=== PATIENT | male | born 1945 | race Caucasian/White ===

== ENCOUNTER → 2024-04-11 | Outpatient (CLI) | payer MEDICARE, OTHER, SELFPAY ==
--- NOTE | 2024-04-11 08:25 | CT_ITS ---
HISTORY: Normal pressure hydrocephalus. TECHNIQUE: Multiple axial images were obtained of the head without intravenous contrast. A radiation dose optimization technique was used for this scan. 240 images. COMPARISON: None. FINDINGS: BRAIN PARENCHYMA: Multiple foci and zones of low attenuation in the bilateral cerebral white matter compatible with chronic small vessel ischemic gliosis. No acute intra-axial hemorrhage identified. CSF SPACES: Moderate ventriculomegaly with right parietal approach [employer] shunt catheter tip at the interventricular septum. No midline shift or other significant mass effect. No acute extra-axial hemorrhage seen. OTHER: Frontal ethmoid sinus opacification with chronic appearing frontal bone fracture. Sinonasal postoperative change. Bilateral lens resections. CT/Brain/Head without Contrast IMPRESSION: Moderate ventriculomegaly in shunt patient, compatible with history of normal pressure hydrocephalus. Chronic involutional and white matter changes. Electronically Signed: Stephanie Mccallum MD at 8:53 EDT ,
--- NOTE | 2024-04-11 08:25 | CT_ITS ---
HISTORY: Gait disorder; evaluate for spinal stenosis. TECHNIQUE: Helically acquired images were obtained of the cervical spine without contrast. 2D reformatted images were reviewed. A radiation dose optimization technique was used for this scan. 424 images. COMPARISON: None. FINDINGS: VERTEBRAE: Vertebral body heights maintained. No acute fracture identified. ALIGNMENT: 3 mm anterolisthesis of C4-5. Straightening of the cervical lordosis. INTERVERTEBRAL DISCS: Degenerative endplate changes with intervertebral disc space narrowing, mild at C4-5 and moderate at C5-6 and C6-7. Posterior disc bulge osteophyte complexes with uncovertebral and facet arthropathy resulting in mild central canal stenosis with moderate bilateral foraminal narrowing at C5-6 and C6/7. SOFT TISSUES: No prevertebral soft tissue swelling. [employer] shunt catheter in the right neck. CT/Spine Cervical without Contras IMPRESSION: No evidence for acute fracture or dislocation in the cervical spine. Multilevel degenerative change. Mild anterolisthesis of C4-5. Electronically Signed: Stephanie Mccallum MD at 9:18 EDT ,
== END | disposition home or self-care (01) ==
PROVIDERS: PCP Nurse Practitioner Family; Referring Provider Psychiatry & Neurology Neurology; Visit Provider Psychiatry & Neurology Neurology
DX: G91.2 (Idiopathic) normal pressure hydrocephalus (principal); F03.90 Unspecified dementia, unspecified severity, without behavioral disturbance, psychotic disturbance, mood disturbance, and anxiety; H91.90 Unspecified hearing loss, unspecified ear; R26.9 Unspecified abnormalities of gait and mobility
CPT/HCPCS: 70450; 72125